=== PATIENT | male | born 1960 | race American Indian/Alaskan Native ===

== ENCOUNTER 2016-11-20 11:08 | Observation (INO) | payer BC, OTHER ==
--- NOTE | 2016-11-20 11:54 | C.PDOC ---
History Of Present Illness 56 year old male who was brought to ER via EMS for elevated blood pressure. Patient's states she takes his blood pressure daily; states it is 140s/ 170s normally but today it was 200/100. Patient was complaining of a headache this morning but not currently. states patient has baseline confusion and baseline left sided weakness from a stroke in 2015. states patient is at baseline at this time; no physical complaints at this time. Time Seen by Provider: 11/20/16 11:38 Chief Complaint (Nursing): High Blood Pressure History Per: Patient History/Exam Limitations: no limitations Onset/Duration Of Symptoms: Hrs Current Symptoms Are (Timing): Still Present Associated Symptoms: Headache. denies: Chest Pain, Dyspnea Quality Of Symptoms: Asymptomatic Exacerbating Factor(s): Pos: None Recent travel outside of the [place]: No Past Medical History Reviewed: Historical Data, Nursing Documentation, Vital Signs Vital Signs: Last Vital Signs Temp 98.1 F 11/20/16 17:45 Pulse 68 11/20/16 17:45 Resp 20 11/20/16 17:45 BP 179/93 H 11/20/16 17:45 Pulse Ox 97 11/20/16 17:45 - Medical History PMH: Anemia, Arthritis, HTN, Hypercholesterolemia, Chronic Kidney Disease Surgical History: No Surg Hx Family History: States: Unknown Family Hx - Social History Hx Tobacco Use: No Hx Alcohol Use: No Hx Substance Use: No - Immunization History Hx Tetanus Toxoid Vaccination: No Hx Influenza Vaccination: No Hx Pneumococcal Vaccination: No Review Of Systems Constitutional: Negative for: Fever, Chills Cardiovascular: Negative for: Chest Pain Respiratory: Negative for: Cough, Shortness of Breath Gastrointestinal: Negative for: Nausea, Vomiting, Abdominal Pain, Diarrhea Neurological: Positive for: Weakness (From prior stroke). Negative for: Numbness Physical Exam - Physical Exam Appears: Non-toxic Skin: Normal Color, Warm, Dry Head: Atraumatic, Normacephalic Oral Mucosa: Moist Chest: Symmetrical, No Tenderness Cardiovascular: Rhythm Regular, No Murmur Respiratory: Normal Breath Sounds, No Rales, No Rhonchi, No Wheezing Gastrointestinal/Abdominal: Soft, No Tenderness Neurological/Psych: Normal Speech, Normal Cognition, Other (Disoriented to time. Mild left leg drift which is baseline for patient.) ED Course And Treatment - Laboratory Results Result Diagrams: 11/20/16 12:11 11/20/16 12:11 O2 Sat by Pulse Oximetry: 98 (Room air) Pulse Ox Interpretation: Normal - CT Scan/US Head CT Other Rad Studies (CT/US): Read By Radiologist, Radiology Report Reviewed CT/US Interpretation: PROCEDURE: CT HEAD WITHOUT CONTRAST. HISTORY: Hypertension. Headache. COMPARISON: Comparison made with prior CT scan brain 05/07/2015. TECHNIQUE: Axial computed tomography images were obtained through the head/brain without intravenous contrast. Radiation dose: Total exam DLP = 1006.21 mGy-cm. This CT exam was performed using one or more of the following dose reduction techniques: Automated exposure control, adjustment of the mA and/ or kV according to patient size, and/or use of iterative reconstruction technique. FINDINGS: HEMORRHAGE: No acute parenchymal, subarachnoid or extra- axial hemorrhage. BRAIN: . Re- demonstrated is a large chronic left FLAME GOUGER territory infarct. Additionally, moderate to fairly significant diffuse/ confluent chronic periventricular white matter ischemic changes are again seen extending peripherally into the deep and subcortical white matter both cerebral hemispheres. Multiple more discrete chronic appearing lacunar type infarcts scattered about both basal nuclei are also noted. VENTRICLES: There is marked ex vacuo dilatation of the left atrium -occipital horn and left temporal horn due to the aforementioned chronic infarct. There is also moderate central volume loss evidenced by disproportionate enlargement of the remaining ventricular system is compared to sulci. CALVARIUM: No acute calvarial fractures. PARANASAL SINUSES: Unremarkable as visualized. No significant inflammatory changes. MASTOID AIR CELLS: Unremarkable as visualized. No inflammatory changes. OTHER FINDINGS: None. IMPRESSION: No acute intracranial hemorrhage. Chronic left posterior cerebral artery territory infarct with ex vacuo dilatation of the left atrium/ occipital horn and left temporal horn. . Significant chronic white matter ischemic changes with multiple bilateral basal nuclei lacunar type infarcts. Note the possibility of an acute infarct cannot be excluded. Moderate central volume loss. Progress Note: Blood work, head CT, and EKG ordered. Medical Decision Making Medical Decision Making: EKG: Sinus Rhythm 67, LVH, no STEMI Disposition - Disposition Disposition: HOSPITALIZED Disposition Time: 14:54 Condition: STABLE - Clinical Impression Clinical Impression: Hypertensive crisis - Scribe Statement The provider has reviewed the documentation as recorded by the Scribe Brenden Lamar All medical record entries made by the Scribe were at my direction and personally dictated by me. I have reviewed the chart and agree that the record accurately reflects my personal performance of the history, physical exam, medical decision making, and the department course for this patient. I have also personally directed, reviewed, and agree with the discharge instructions and disposition.
[2016-11-20 12:29] LABS: BASO % 0.6 % (0.0-2.0); EOS # 0.1 K/uL (0.0-0.7); EOS % 2.4 % (0.0-4.0); HEMOGLOBIN 11.6 g/dL (12.0-18.0); LYMPH # 1.9 K/uL (1.0-4.3); LYMPH % 37.8 % (20.0-40.0); MEAN CORPUSCULAR HEMOGLOBIN 27.4 pg (27.0-31.0); MEAN CORPUSCULAR HGB CONC 32.2 g/dL (33.0-37.0); MEAN PLATELET VOLUME 9.1 fL (7.2-11.7); MONO # 0.6 K/uL (0.0-0.8); MONO % 12.6 % (0.0-10.0); NEUT # 2.3 K/uL (1.8-7.0); NEUT % 46.6 % (50.0-75.0); NRBC % 0.2 % (0.0-2.0); RBC 4.23 Mil/uL (4.40-5.90); RED CELL DISTRIBUTION WIDTH 14.6 % (11.5-14.5)
[2016-11-20 12:33] LABS: ALBUMIN 3.3 g/dL (3.5-5.0)
[2016-11-20 12:36] LABS: ALB/GLOB RATIO 1.1 (1.0-2.1); AST/SGOT 32 U/L (17-59); BLOOD UREA NITROGEN 13 mg/dL (9-20); CALCIUM 8.5 mg/dl (8.6-10.4); GFR AFRICAN-AMERICAN > 60; GFR NON-AFRICAN AMERICAN 57
[2016-11-20 12:37] LABS: ALT/SGPT 21 U/L (21-72)
--- NOTE | 2016-11-20 13:01 | CT ---
PROCEDURE: CT HEAD WITHOUT CONTRAST. HISTORY: Hypertension. Headache. COMPARISON: Comparison made with prior CT scan brain 05/07/2015. TECHNIQUE: Axial computed tomography images were obtained through the head/brain without intravenous contrast. Radiation dose: Total exam DLP = 1006.21 mGy-cm. This CT exam was performed using one or more of the following dose reduction techniques: Automated exposure control, adjustment of the mA and/or kV according to patient size, and/or use of iterative reconstruction technique. FINDINGS: HEMORRHAGE: No acute parenchymal, subarachnoid or extra-axial hemorrhage. BRAIN: . Re- demonstrated is a large chronic left TAB BUILDER territory infarct. Additionally, moderate to fairly significant diffuse/confluent chronic periventricular white matter ischemic changes are again seen extending peripherally into the deep and subcortical white matter both cerebral hemispheres. Multiple more discrete chronic appearing lacunar type infarcts scattered about both basal nuclei are also noted. VENTRICLES: There is marked ex vacuo dilatation of the left atrium -occipital horn and left temporal horn due to the aforementioned chronic infarct. There is also moderate central volume loss evidenced by disproportionate enlargement of the remaining ventricular system is compared to sulci. CALVARIUM: No acute calvarial fractures PARANASAL SINUSES: Unremarkable as visualized. No significant inflammatory changes. MASTOID AIR CELLS: Unremarkable as visualized. No inflammatory changes. OTHER FINDINGS: None. IMPRESSION: No acute intracranial hemorrhage. Chronic left posterior cerebral artery territory infarct with ex vacuo dilatation of the left atrium/ occipital horn and left temporal horn. . Significant chronic white matter ischemic changes with multiple bilateral basal nuclei lacunar type infarcts. Note the possibility of an acute infarct cannot be excluded. Moderate central volume loss.
[2016-11-20] MEDS ORDERED: Labetalol 5 mg/ml Inj 20ML IVP STA (13:46)
[2016-11-20] MEDS ORDERED: Labetalol 25mg/5ml Syringe ONE (14:24)
--- NOTE | 2016-11-20 15:57 | CP.PCM.HP ---
Addendum entered and electronically signed by Eduard Mckeon 11/21/16 12:18: Hypertensive Urgency BP elevated at 205/112, pt not able to refill HTN medications restarted all home BP medications Amlodipine 10mg po daily Clonidine 0.2 mg po TID Hydralazine 100mg po TID Hydrochlorothiazide 25mg po daily Losartan 100mg po daily Minoxidil 5mg po daily Nifedipine 50mg po BID routine labs CHF No hx of CHF but wheezing on auscultation, pedal edema 2+ b/l ECHO, f/u Chest xray, f/u Depression con't home med Escitalopram 10mg po daily HDL con't home med rosuvastatin 20mg po hs Prophylactic Measures Heart healthy diet, 2 Na Pepcid 20mg po daily Lovenox 40mg sc daily Activity as tolerated Original Note: <Eduard Mckeon - Last Filed: 11/20/16 15:59> History of Present Illness - History of Present Illness History of Present Illness: CC: Hypertensive Urgency HPI: Mr Brown is a 56 yo M with a PMH of CVA and HTN who presents to the ED today with elevated BP. Patient's checks his BP daily and states that his normal range is 140-150/70-80. Patient was at home at rest when his BP was checked this morning. Per patients , patient has had issues with insurance beginning 10/17/16 and he hasn't been able to refill "some" of his BP medicines since then, although she is not sure of exactly which ones. She states that he is compliant with his medications when he has them. Patient admitted to a headache this morning which resolved a few hours later. Patient denies chest pain, palpations, vision changes, shortness of breath, leg pain, abdominal pain. PMD: Dr Thomas Drywall Hanger Helper: Dr Fan Spray Cementer: Dr Pozo PMHx: CVA 2014 - baseline confusion, baseline left sided weakness HTN HLD Depression PSHx: Left hip replacement Right hip replacement Allergies: NKA SocialHx: denies smoking Hx; denies drinking etoh; lives at home with FamHx: strong famhx of HTN, hx of HTN in both parents and siblings Present on Admission - Present on Admission Any Indicators Present on Admission: No Review of Systems - Constitutional Constitutional: Headache. absent: Chills, Excessive Sweating, Fever - EENT Eyes: absent: Blurred Vision, Change in Vision Ears: absent: Ear Pain Nose/Mouth/Throat: absent: Sore Throat - Cardiovascular Cardiovascular: absent: Chest Pain, Diaphoresis, Dyspnea, Palpitations - Respiratory Respiratory: absent: Cough, Dyspnea, Wheezing - Gastrointestinal Gastrointestinal: absent: Abdominal Pain, Diarrhea, Vomiting - Genitourinary Genitourinary: absent: Difficulty Urinating, Dysuria - Musculoskeletal Musculoskeletal: absent: Joint Swelling - Integumentary Integumentary: absent: Rash - Neurological Neurological: Abnormal Speech, Confusion - Psychiatric Psychiatric: absent: Behavioral Changes - Endocrine Endocrine: absent: Change in Body Appearance Past Patient History - Infectious Disease Hx of Infectious Diseases: None - Past Medical History & Family History Past Medical History?: Yes - Past Social History Smoking Status: Never Smoked - CARDIAC Hx Hypercholesterolemia: Yes Hx Hypertension: Yes - PULMONARY Hx Respiratory Disorders: No - NEUROLOGICAL Hx Neurological Disorder: No Other/Comment: hx of stroke in September 2014 - HEENT Hx HEENT Problems: No - RENAL Hx Chronic Kidney Disease: Yes - ENDOCRINE/METABOLIC Hx Endocrine Disorders: No - HEMATOLOGICAL/ONCOLOGICAL Hx Anemia: Yes - MUSCULOSKELETAL/RHEUMATOLOGICAL Hx Arthritis: Yes - GASTROINTESTINAL Hx Crohn's Disease: No Hx Diverticulitis: No Hx Gall Bladder Disease: No Hx Gastritis: No Hx Pancreatitis: No - GENITOURINARY/GYNECOLOGICAL Hx Genitourinary Disorders: No - PSYCHIATRIC Hx Substance Use: No - SURGICAL HISTORY Hx Surgeries: Yes Hx Joint Replacement: Yes (bilat hip replacements) Hx Orthopedic Surgery: Yes Other/Comment: bilateral hip replacement. - ANESTHESIA Hx Anesthesia: Yes Hx Anesthesia Reactions: No Hx Malignant Hyperthermia: No Meds Home Medications: Home Medication List Medication Instructions Recorded Confirmed Type Atorvastatin [Lipitor] 40 mg PO HS #30 11/21/16 Rx Losartan/Hydrochlorothiazide 1 each PO DAILY #30 11/21/16 Rx [Losartan-Hctz 100-25 mg Tab] Minoxidil 5 mg PO DAILY #30 tab 11/21/16 Rx NIFEdipine ER [Procardia XL] 60 mg PO BID #60 ter 11/21/16 Rx hydrALAZINE [Apresoline] 100 mg PO TID #90 tab 11/21/16 Rx Allergies/Adverse Reactions: Allergies Allergy/AdvReac Type Severity Reaction Status Date / Time No Known Allergies Allergy Verified 04/07/15 11:15 Physical Exam - Constitutional Appears: Well, Non-toxic, No Acute Distress - Head Exam Head Exam: ATRAUMATIC, NORMAL INSPECTION, NORMOCEPHALIC - Eye Exam Eye Exam: EOMI, Normal appearance, PERRL - ENT Exam ENT Exam: Mucous Membranes Moist, Normal Exam - Neck Exam Neck exam: Positive for: Normal Inspection - Respiratory Exam Respiratory Exam: Wheezes, NORMAL BREATHING PATTERN. absent: Rales, Rhonchi - Cardiovascular Exam Cardiovascular Exam: REGULAR RHYTHM - GI/Abdominal Exam GI & Abdominal Exam: Normal Bowel Sounds, Soft. absent: Tenderness - Rectal Exam Rectal Exam: Deferred - Extremities Exam Additional comments: left arm weakness, muscle strength 4/5 left leg weakness, muscle strength 4/5 - Neurological Exam Neurological exam: Alert, Oriented x3, Reflexes Normal - Psychiatric Exam Psychiatric exam: Normal Affect, Normal Mood - Skin Skin Exam: Dry, Intact, Normal Color, Warm Results - Vital Signs Recent Vital Signs: Last Vital Signs Temp 98.3 F 11/20/16 11:20 Pulse 68 11/20/16 15:09 Resp 11/20/16 15:09 BP 178/97 H 11/20/16 15:09 Pulse Ox 96 11/20/16 15:09 - Labs Result Diagrams: 11/20/16 12:11 11/20/16 12:11 <Uche Aldridge - Last Filed: 11/21/16 17:43> Results - Vital Signs Recent Vital Signs: Last Vital Signs Temp 97.7 F 11/21/16 15:29 Pulse 66 11/21/16 16:00 Resp 20 11/21/16 15:29 BP 134/74 11/21/16 15:29 Pulse Ox 96 11/21/16 15:29 - Labs Result Diagrams: 11/21/16 07:14 11/21/16 07:14 Labs: Laboratory Results - last 24 hr 11/21/16 11/21/16 07:14 07:14 WBC 5.1 RBC 4.68 Hgb 12.9 Hct 39.5 MCV 84.4 MCH 27.6 MCHC 32.7 L RDW 14.6 H Plt Count 165 MPV 9.5 Neut % (Auto) 57.4 Lymph % (Auto) 30.3 [place] % (Auto) 10.1 H Eos % (Auto) 1.7 Baso % (Auto) 0.5 Neut # 2.9 Lymph # 1.5 [place] # 0.5 Eos # 0.1 Baso # 0.0 Sodium 141 Potassium 3.2 L Chloride 104 Carbon Dioxide 28 Anion Gap 13 BUN 13 Creatinine 1.2 Est GFR ( Amer) > 60 Est GFR (Non-Af Amer) > 60 Random Glucose 96 Calcium 8.8 Phosphorus 2.9 Magnesium 2.1 Total Bilirubin 0.6 AST 24 ALT 13 L D Alkaline Phosphatase 69 Total Protein 7.0 Albumin 3.6 Globulin 3.4 Albumin/Globulin Ratio 1.0 Attending/Attestation - Attestation I have personally seen and examined this patient.: Yes I have fully participated in the care of the patient.: Yes I have reviewed all pertinent clinical information: Yes Notes (Text): 11/21/16 17:42 Patient was seen and examined at bedside with the resident Admit the patient for hypertensive urgency Start the patient on medication Patient has been noncompliant with medication recently I discussed the plan of care with the resident and agree with the history and physical and assessment/plan by the resident. 11/21/16 17:43
[2016-11-20] MEDS ORDERED: NIFEdipine 60 mg ER Tab PO SCH (18:00)
[2016-11-20] MEDS ORDERED: HYDRALAZINE HYDROCHLORIDE PO SCH (18:00)
[2016-11-20] MEDS ORDERED: Potassium Chloride 20 mEq ER Tab PO ONE (18:30)
[2016-11-20] MEDS: NIFEdipine 60 mg ER Tab PO SCH (18:32)
[2016-11-21 07:49] LABS: BASO % 0.5 % (0.0-2.0); EOS # 0.1 K/uL (0.0-0.7); EOS % 1.7 % (0.0-4.0); HEMOGLOBIN 12.9 g/dL (12.0-18.0); LYMPH # 1.5 K/uL (1.0-4.3); LYMPH % 30.3 % (20.0-40.0); MEAN CELL VOLUME 84.4 fL (80.0-94.0); MEAN CORPUSCULAR HEMOGLOBIN 27.6 pg (27.0-31.0); MEAN CORPUSCULAR HGB CONC 32.7 g/dL (33.0-37.0); MEAN PLATELET VOLUME 9.5 fL (7.2-11.7); MONO # 0.5 K/uL (0.0-0.8); MONO % 10.1 % (0.0-10.0); NEUT # 2.9 K/uL (1.8-7.0); NEUT % 57.4 % (50.0-75.0); NRBC % 0.1 % (0.0-2.0); RBC 4.68 Mil/uL (4.40-5.90); RED CELL DISTRIBUTION WIDTH 14.6 % (11.5-14.5); WHITE BLOOD COUNT 5.1 K/uL (4.8-10.8)
[2016-11-21 08:13] LABS: ALBUMIN 3.6 g/dL (3.5-5.0)
[2016-11-21 08:15] LABS: GFR AFRICAN-AMERICAN > 60; GFR NON-AFRICAN AMERICAN > 60
[2016-11-21 08:16] LABS: ALT/SGPT 13 U/L (21-72); AST/SGOT 24 U/L (17-59); BLOOD UREA NITROGEN 13 mg/dL (9-20)
[2016-11-21 08:17] LABS: CALCIUM 8.8 mg/dl (8.6-10.4); MAGNESIUM 2.1 mg/dL (1.6-2.3)
[2016-11-21 09:02] VITALS: O2SAT 96
[2016-11-21] MEDS: NIFEdipine 60 mg ER Tab PO SCH ×2 (09:26→17:03)
[2016-11-21] MEDS ORDERED: Enoxaparin 40 mg Syringe SC SCH (10:00)
[2016-11-21] MEDS ORDERED: Potassium Chloride 20 mEq ER Tab PO ONE ×4 (11:14→18:15)
--- NOTE | 2016-11-21 14:47 | RAD ---
HISTORY: wheezing COMPARISON: 09/17/2014 TECHNIQUE: Chest PA and lateral FINDINGS: LUNGS: No active pulmonary disease. PLEURA: No significant pleural effusion identified. No pneumothorax apparent. CARDIOVASCULAR: Mild cardiomegaly. No congestive change. OSSEOUS STRUCTURES: No significant abnormalities. VISUALIZED UPPER ABDOMEN: Normal. OTHER FINDINGS: None. IMPRESSION: No active disease.
--- NOTE | 2016-11-21 15:06 | CP.PCM.DIS ---
<Bethany Chen E - Last Filed: 11/21/16 21:34> Provider - Provider Date of Admission: 11/20/16 14:54 Attending physician: Uche Aldridge MD Time Spent in preparation of Discharge (in minutes): 45 Hospital Course - Lab Results Lab Results: Most Recent Lab Values WBC 5.1 K/uL (4.8-10.8) 11/21/16 07:14 RBC 4.68 Mil/uL (4.40-5.90) 11/21/16 07:14 Hgb 12.9 g/dL (12.0-18.0) 11/21/16 07:14 Hct 39.5 % (35.0-51.0) 11/21/16 07:14 MCV 84.4 fL (80.0-94.0) 11/21/16 07:14 MCH 27.6 pg (27.0-31.0) 11/21/16 07:14 MCHC 32.7 g/dL (33.0-37.0) L 11/21/16 07:14 RDW 14.6 % (11.5-14.5) H 11/21/16 07:14 Plt Count 165 K/uL (130-400) 11/21/16 07:14 MPV 9.5 fL (7.2-11.7) 11/21/16 07:14 Neut % (Auto) 57.4 % (50.0-75.0) 11/21/16 07:14 Lymph % (Auto) 30.3 % (20.0-40.0) 11/21/16 07:14 [place] % (Auto) 10.1 % (0.0-10.0) H 11/21/16 07:14 Eos % (Auto) 1.7 % (0.0-4.0) 11/21/16 07:14 Baso % (Auto) 0.5 % (0.0-2.0) 11/21/16 07:14 Neut # 2.9 K/uL (1.8-7.0) 11/21/16 07:14 Lymph # 1.5 K/uL (1.0-4.3) 11/21/16 07:14 [place] # 0.5 K/uL (0.0-0.8) 11/21/16 07:14 Eos # 0.1 K/uL (0.0-0.7) 11/21/16 07:14 Baso # 0.0 K/uL (0.0-0.2) 11/21/16 07:14 Sodium 141 mmol/L (132-148) 11/21/16 07:14 Potassium 3.2 mmol/L (3.6-5.2) L 11/21/16 07:14 Chloride 104 mmol/L (98-107) 11/21/16 07:14 Carbon Dioxide 28 mmol/L (22-30) 11/21/16 07:14 Anion Gap 13 (10-20) 11/21/16 07:14 BUN 13 mg/dL (9-20) 11/21/16 07:14 Creatinine 1.2 MG/DL (0.8-1.5) 11/21/16 07:14 Est GFR ( Amer) > 60 11/21/16 07:14 Est GFR (Non-Af Amer) > 60 11/21/16 07:14 Random Glucose 96 mg/dL (75-110) 11/21/16 07:14 Calcium 8.8 mg/dl (8.6-10.4) 11/21/16 07:14 Phosphorus 2.9 mg/dL (2.5-4.5) 11/21/16 07:14 Magnesium 2.1 mg/dL (1.6-2.3) 11/21/16 07:14 Total Bilirubin 0.6 mg/dL (0.2-1.3) 11/21/16 07:14 AST 24 U/L (17-59) 11/21/16 07:14 ALT 13 U/L (21-72) L D 11/21/16 07:14 Alkaline Phosphatase 69 U/L (38-126) 11/21/16 07:14 Troponin I < 0.0120 ng/mL (0.00-0.120) 11/20/16 12:11 Total Protein 7.0 g/dL (6.3-8.3) 11/21/16 07:14 Albumin 3.6 g/dL (3.5-5.0) 11/21/16 07:14 Globulin 3.4 gm/dL (2.2-3.9) 11/21/16 07:14 Albumin/Globulin Ratio 1.0 (1.0-2.1) 11/21/16 07:14 - Hospital Course Hospital Course: As per admission: HPI: Mr Brown is a 56 yo M with a PMH of CVA and HTN who presents to the ED today with elevated BP. Patient's checks his BP daily and states that his normal range is 140-150/70-80. Patient was at home at rest when his BP was checked this morning. Per patients , patient has had issues with insurance beginning 10/17/16 and he hasn't been able to refill "some" of his BP medicines since then, although she is not sure of exactly which ones. She states that he is compliant with his medications when he has them. Patient admitted to a headache this morning which resolved a few hours later. Patient denies chest pain, palpations, vision changes, shortness of breath, leg pain, abdominal pain. Hospital Course: Patient is a 56 year old male with a PMH of CVA and HTN who presents to the ED today with elevated BP (SBP of 200s). Patient was admitted to the floor for observation and was medically managed. Patient's blood pressure started to improve and patient was asymptomatic. Patient was strongly encouraged to be compliant with his hypertensive medications. Patient is to follow up with his primary care physician and his metal ceiling builder within one week. Pertinent studies: 1.) CT head: No acute parenchymal subarachnoid or extra-axial hemorrhage. No acute intracranial hemorrhage. Chronic left posterior artery territory infarct with ex vacuo dilatation of the left atrium/occipital horn and left temporal horn. Significant chronic white matter ischemic changes with multiple bilateral basal nuclei lacunar type infarcts. Moderate central volume loss. 2.) Chest X-ray: No active disease This is a brief summary of events. For a complete course, refer to the medical record. Discharge Exam - Head Exam Head Exam: ATRAUMATIC, NORMAL INSPECTION, NORMOCEPHALIC Discharge Plan - Discharge Medications Prescriptions: Atorvastatin [Lipitor] 40 mg PO HS #30 hydrALAZINE [Apresoline] 100 mg PO TID #90 tab Losartan/Hydrochlorothiazide [Losartan-Hctz 100-25 mg Tab] 1 each PO DAILY #30 Minoxidil 5 mg PO DAILY #30 tab NIFEdipine ER [Procardia XL] 60 mg PO BID #60 ter - Follow Up Plan Condition: STABLE Disposition: HOME/ ROUTINE Instructions: Nifedipine (By mouth), Hydralazine (By mouth), Minoxidil (By mouth), Atorvastatin (By mouth), Losartan/Hydrochlorothiazide (By mouth), Heart Healthy Diet (DC), Hypertensive Crisis (DC), Hypertension (DC) Additional Instructions: Please discharge patient home Please resume all home medications and new medications as prescribed Please take your hypertensive medications as prescribed Please follow-up with your primary care physician (Dr. Thomas) within one week. Please follow-up with your metal ceiling builder (Dr. Pozo) within one week. Please return to the hospital if symptoms resume <Uche Aldridge - Last Filed: 11/22/16 17:32> Provider - Provider Date of Admission: 11/20/16 14:54 Attending physician: Uche Aldridge MD Hospital Course - Lab Results Lab Results: Most Recent Lab Values WBC 5.1 K/uL (4.8-10.8) 11/21/16 07:14 RBC 4.68 Mil/uL (4.40-5.90) 11/21/16 07:14 Hgb 12.9 g/dL (12.0-18.0) 11/21/16 07:14 Hct 39.5 % (35.0-51.0) 11/21/16 07:14 MCV 84.4 fL (80.0-94.0) 11/21/16 07:14 MCH 27.6 pg (27.0-31.0) 11/21/16 07:14 MCHC 32.7 g/dL (33.0-37.0) L 11/21/16 07:14 RDW 14.6 % (11.5-14.5) H 11/21/16 07:14 Plt Count 165 K/uL (130-400) 11/21/16 07:14 MPV 9.5 fL (7.2-11.7) 11/21/16 07:14 Neut % (Auto) 57.4 % (50.0-75.0) 11/21/16 07:14 Lymph % (Auto) 30.3 % (20.0-40.0) 11/21/16 07:14 [place] % (Auto) 10.1 % (0.0-10.0) H 11/21/16 07:14 Eos % (Auto) 1.7 % (0.0-4.0) 11/21/16 07:14 Baso % (Auto) 0.5 % (0.0-2.0) 11/21/16 07:14 Neut # 2.9 K/uL (1.8-7.0) 11/21/16 07:14 Lymph # 1.5 K/uL (1.0-4.3) 11/21/16 07:14 [place] # 0.5 K/uL (0.0-0.8) 11/21/16 07:14 Eos # 0.1 K/uL (0.0-0.7) 11/21/16 07:14 Baso # 0.0 K/uL (0.0-0.2) 11/21/16 07:14 Sodium 141 mmol/L (132-148) 11/21/16 07:14 Potassium 3.2 mmol/L (3.6-5.2) L 11/21/16 07:14 Chloride 104 mmol/L (98-107) 11/21/16 07:14 Carbon Dioxide 28 mmol/L (22-30) 11/21/16 07:14 Anion Gap 13 (10-20) 11/21/16 07:14 BUN 13 mg/dL (9-20) 11/21/16 07:14 Creatinine 1.2 MG/DL (0.8-1.5) 11/21/16 07:14 Est GFR ( Amer) > 60 11/21/16 07:14 Est GFR (Non-Af Amer) > 60 11/21/16 07:14 Random Glucose 96 mg/dL (75-110) 11/21/16 07:14 Calcium 8.8 mg/dl (8.6-10.4) 11/21/16 07:14 Phosphorus 2.9 mg/dL (2.5-4.5) 11/21/16 07:14 Magnesium 2.1 mg/dL (1.6-2.3) 11/21/16 07:14 Total Bilirubin 0.6 mg/dL (0.2-1.3) 11/21/16 07:14 AST 24 U/L (17-59) 11/21/16 07:14 ALT 13 U/L (21-72) L D 11/21/16 07:14 Alkaline Phosphatase 69 U/L (38-126) 11/21/16 07:14 Troponin I < 0.0120 ng/mL (0.00-0.120) 11/20/16 12:11 Total Protein 7.0 g/dL (6.3-8.3) 11/21/16 07:14 Albumin 3.6 g/dL (3.5-5.0) 11/21/16 07:14 Globulin 3.4 gm/dL (2.2-3.9) 11/21/16 07:14 Albumin/Globulin Ratio 1.0 (1.0-2.1) 11/21/16 07:14 Attending/Attestation - Attestation I have personally seen and examined this patient.: Yes I have fully participated in the care of the patient.: Yes I have reviewed all pertinent clinical information, including history, physical exam and plan: Yes Notes (Text): 11/22/16 17:31 Patient was seen and examined at bedside with the resident Patient states that he is feeling better Blood pressure is better controlled We'll discharge with the patient home All prescriptions given for his home medication Patient agrees to fill up his prescriptions and follow up with his primary medical doctor Discussed the discharge plan with the patient and the family and they verbalized understanding I agree with the discharge note by the resident.
[2016-11-21 16:30] VITALS: BP 134/74; RESP 20; TEMP 97.7
[2016-11-21 16:48] VITALS: PULSE 66
--- NOTE | 2016-11-21 21:27 | CARD ---
APPROVED REPORT EKG Measurement Heart [id number] <Conclusion> Normal sinus rhythm Left ventricular hypertrophy with repolarization abnormality Cannot rule out Septal infarct, age undetermined Abnormal ECG
[2016-11-22] MEDS ORDERED: Pneumococcal 23-Valent Vaccine IM ONE (10:00)
--- NOTE | 2016-11-22 22:21 | CARD ---
APPROVED REPORT EXAM: Two-dimensional and M-mode echocardiogram with Doppler and color Doppler. Other Information Quality : [employer] : INDICATION PITTING EDEMA, HX OF LVH M-Mode DIMENSIONS RVDd1.82 (2.1-3.2cm)Left Atrium (MM)5.68 (2.5-4.0cm) IVSd1.91 (0.7-1.1cm)Aortic Root3.60 (2.2-3.7cm) LVDd6.12 (4.0-5.6cm)Aortic Cusp Exc.1.56 (1.5-2.0cm) PWd1.65 (0.7-1.1cm)FS (%) 39 % LVDs3.73 (2.0-3.8cm)LVEF (%)68 (>50%) Mitral Valve MV E Tgopttnk84.2cm/sMV A Knrksnwn31.4cm/sE/A ratio1.1 TDI E/Lateral E'0.0E/Medial E'0.0 Tricuspid Valve TR Peak Byazzvjb650rr/sTR Peak Gr.42adYcIHNL29cmJa LEFT VENTRICLE There is moderate to severe concentric left ventricular hypertrophy. Left ventricle systolic function is normal with Ejection Fraction of 65-70%. There is normal LV segmental wall motion. The left ventricular diastolic function is normal. No left ventricle thrombus noted on this study. RIGHT VENTRICLE The right ventricle is normal size. The right ventricle is moderately hypertrophied. The right ventricular systolic function is normal. ATRIA The left atrium is moderately dilated. The right atrium is moderately dilated. AORTIC VALVE The aortic valve is mildly thickened. The aortic valve is trileaflet. No aortic regurgitation is present. There is no aortic valvular stenosis. There is no aortic valvular vegetation. MITRAL VALVE Mitral annular calcification is mild. There is no evidence of mitral valve prolapse. There is no mitral valve stenosis. Mitral regurgitation is trace to mild. TRICUSPID VALVE The tricuspid valve is normal in structure. There is mild tricuspid regurgitation. Right ventricular systolic pressure is estimated at 30-40 mmHg. There is mild pulmonary hypertension. There is no tricuspid valve prolapse or vegetation. There is no tricuspid valve stenosis. PULMONIC VALVE The pulmonic valve is not well visualized. There is no pulmonic valvular regurgitation. GREAT VESSELS The aortic root is normal in size. The IVC is normal in size and collapses >50% with inspiration. PERICARDIAL EFFUSION There is a small circumferential pericardial effusion. There is no pleural effusion. <Conclusion> There is moderate to severe concentric left ventricular hypertrophy. Left ventricle systolic function is normal with Ejection Fraction of 65-70%. The left ventricular diastolic function is normal. The right ventricle is moderately hypertrophied. The right ventricular systolic function is normal. The left atrium is moderately dilated. The right atrium is moderately dilated. Mitral regurgitation is trace to mild. There is mild tricuspid regurgitation. There is mild pulmonary hypertension. There is a small circumferential pericardial effusion.
== END 2016-11-21 17:45 | disposition home or self-care (01) ==
LOC: C.ER 11:08 → C.9E 14:54 → C.6T 15:50
PROVIDERS: ADMIT Internal Medicine; ATTEND Internal Medicine
DX: I16.0 Hypertensive urgency (principal); I12.9 Hypertensive chronic kidney disease with stage 1 through stage 4 chronic kidney disease, or unspecified chronic kidney disease; N18.9 Chronic kidney disease, unspecified; I16.9 Hypertensive crisis, unspecified; E78.5 Hyperlipidemia, unspecified
CPT/HCPCS: 36415; 70450; 71020; 80053; 83735; 84100; 84484; 85025; 93005; 93306; 96374; 99285; G0378; J1650